=== PATIENT | female | born 1950 | race Caucasian/White ===

== ENCOUNTER 2018-05-13 08:25 | Emergency (ER) | payer OTHER, MEDICARE ==
[~2018-05-13] VITALS: Wt 104.0 kg
[2018-05-13] MEDS ORDERED: ONDANSETRON 4 MG INJ IV STA (08:36)
[2018-05-13] MEDS ORDERED: LIDOCAINE/MYLANTA 40 ML BTL PO ONE (09:00)
[2018-05-13] MEDS ORDERED: morphine 4 MG/ML VIAL IV STA (09:45)
[2018-05-13] MEDS ORDERED: CEPHALEXIN 500 MG CAP PO ONE (10:00)
[2018-05-13] MEDS ORDERED: ONDA4TAB14 PO (10:30)
[2018-05-13] MEDS ORDERED: NALO4SPR NS (10:30)
[2018-05-13] MEDS ORDERED: HYDR-4011 PO (10:30)
--- NOTE | 2018-05-13 10:31 | ERD ---
ER Documentation Chief Complaint Chief Complaint ABD PAIN WITH N/V SINCE LAST NIGHT AFTER [place] [employer] HPI Patient is a 67-year-old female with no medical problems who presents with abdominal pain. She has sharp and constant in the epigastric area. It has been constant and sharp in nature. The patient has nausea and vomiting but no blood. The patient's primary doctor is Dr. Medrano. The symptoms started after eating [place]. ROS All systems reviewed and are negative except as per history of present illness. Medications Home Meds Active Scripts Naloxone HCl nasal spray (Narcan 4 mg/0.1 mL nasal) 4 Mg [place], 4 MG NS .Q2-3MIN for OPIOID OVERDOSE, #2 SPRAY 0 Refills [place] 0.1 mL into one nostril. Repeat with second device into other nostril after 2-3 minutes if no or minimal response Prov:SABAS GRANADOS MD 05/13/18 Ondansetron (Ondansetron Odt) 4 Mg Tab.rapdis, 4 MG PO Q6H PRN for NAUSEA AND/OR VOMITING, #10 TAB Prov:SABAS GRANADOS MD 05/13/18 Hydrocodone/Acetaminophen ([place] 5-325 Tablet) 1 Each Tablet, 1 TAB PO Q6H PRN for PAIN, #7 TAB Prov:SABAS GRANADOS MD 05/13/18 Allergies Allergies: Coded Allergies: No Known Allergy (Unverified , 05/13/18) PMhx/Soc History of Surgery: No Anesthesia Reaction: No Hx Neurological Disorder: No Hx Respiratory Disorders: No Hx Cardiac Disorders: Yes (HIGH CHOLESTEROL) Hx Psychiatric Problems: No Hx Miscellaneous Medical Probl: No Hx Alcohol Use: No Hx Substance Use: No Hx Tobacco Use: No Smoking Status: Never smoker FmHx Family History: diabetes Physical Exam Vitals Vital Signs Date Temp Pulse Resp B/P (MAP) Pulse Ox O2 O2 Flow FiO2 Time Delivery Rate 05/13/18 98.5 65 17 127/80 99 Room Air 11:05 (96) 05/13/18 98.5 86 18 169/87 99 08:27 (114) Physical Exam Const: No acute distress Head: Atraumatic Eyes: Normal Conjunctiva ENT: Normal External Ears, Nose and Mouth. Neck: Full range of motion. No meningismus. Resp: Clear to auscultation bilaterally Cardio: Regular rate and rhythm, no murmurs Abd: Soft, epigastric tenderness to palpation without rebound or guarding Skin: No petechiae or rashes Back: No midline or flank tenderness Ext: No cyanosis, or edema Neur: Awake and alert Psych: Normal Mood and Affect Result Diagram: 05/13/18 0911 05/13/18 0911 Results 24 hrs Laboratory Tests Test 05/13/18 09:11 White Blood Count 12.8 10^3/ul Red Blood Count 4.81 10^6/ul Hemoglobin 13.0 g/dl Hematocrit 40.9 % Mean Corpuscular Volume 85.0 fl Mean Corpuscular Hemoglobin 27.0 pg Mean Corpuscular Hemoglobin Concent 31.8 g/dl Red Cell Distribution Width 13.0 % Platelet Count 248 10^3/UL Mean Platelet Volume 10.4 fl Immature Granulocytes % 0.500 % Neutrophils % 85.1 % Lymphocytes % 9.3 % Monocytes % 4.9 % Eosinophils % 0.0 % Basophils % 0.2 % Nucleated Red Blood Cells % 0.0 /100WBC Immature Granulocytes # 0.070 10^3/ul Neutrophils # 10.9 10^3/ul Lymphocytes # 1.2 10^3/ul Monocytes # 0.6 10^3/ul Eosinophils # 0.0 10^3/ul Basophils # 0.0 10^3/ul Nucleated Red Blood Cells # 0.0 10^3/ul Urine Color YELLOW Urine Clarity SLIGHTLY CLOUDY Urine pH 7.0 Urine Specific [place] 1.023 Urine Ketones 1+ mg/dL Urine Nitrite NEGATIVE mg/dL Urine Bilirubin NEGATIVE mg/dL Urine Urobilinogen NEGATIVE mg/dL Urine Leukocyte Esterase TRACE [place]/ul Urine Microscopic RBC 29 /HPF Urine Microscopic WBC 36 /HPF Urine Squamous Epithelial Cells FEW /HPF Urine Bacteria MODERATE /HPF Urine Mucus FEW /HPF Urine Hemoglobin 1+ mg/dL Urine Glucose NEGATIVE mg/dL Urine Total Protein 3+ mg/dl Sodium Level 141 mmol/L Potassium Level 3.7 mmol/L Chloride Level 97 mmol/L Carbon Dioxide Level 27 mmol/L Anion Gap 17 Blood Urea Nitrogen 12 mg/dl Creatinine 0.60 mg/dl Est Glomerular Filtrat Rate mL/min > 60 mL/min Glucose Level 147 mg/dl Calcium Level 9.6 mg/dl Total Bilirubin 0.4 mg/dl Direct Bilirubin 0.00 mg/dl Indirect Bilirubin 0.4 mg/dl Aspartate Amino Transf (AST/SGOT) 25 IU/L Alanine Aminotransferase (ALT/SGPT) 20 IU/L Alkaline Phosphatase 85 IU/L Troponin I < 0.012 ng/ml Total Protein 8.5 g/dl Albumin 4.5 g/dl Globulin 4.00 g/dl Albumin/Globulin Ratio 1.12 Lipase 28 U/L Current Medications Medications Dose Sig/Dat Start Time Status Last (Trade) Ordered Route PRN Stop Time Admin Dose Reason Admin Ondansetron 4 mg ONCE STAT 05/13/18 DC 05/13/18 HCl (Zofran IV 08:36 09:15 Inj) 05/13/18 08:37 40 ml ONCE ONCE 05/13/18 DC 05/13/18 Miscellaneous PO 09:00 09:16 Medication 05/13/18 09:01 (Gi Cocktail (2)) Morphine 4 mg ONCE STAT 05/13/18 DC 05/13/18 Sulfate IV 09:45 09:48 (morphine) 05/13/18 09:46 Cephalexin 500 mg ONCE ONCE 05/13/18 DC 05/13/18 (Keflex) PO 10:00 10:47 05/13/18 10:01 Procedures/MDM EKG read by me: Rate/Rhythm: Regular rate and rhythm at a rate of 73 Intervals: Normal Impression: No evidence of ischemia or arrhythmia Ultrasound of the gallbladder read by radiology. Patient is a 67-year-old female who presents with abdominal pain. She was found to have biliary colic. I doubt cholecystitis or pancreatitis at this time. I doubt appendicitis or bowel obstruction. She has cystitis and I would treat her with Keflex. I will treat with [place] and Zofran for symptom medic relief and she will be given a prescription for Narcan. She will need to follow-up with her primary doctor and with Dr. Osman from general surgery within 24-48 hours. She would likely benefit from outpatient cholecystectomy. She can return for any worsening symptoms. Departure Diagnosis: Primary Impression: Biliary colic Additional Impressions: Abdominal pain Abdominal location: epigastric Qualified Codes: R10.13 - Epigastric pain Cystitis Condition: Fair Patient Instructions: Cystitis, Biliary Colic With Gallstone (Confirmed) Referrals: AYAZ MEDRANO ANDREW I MD Additional Instructions: Llame al doctor ANGUS y jarrett estefani RADHA PARA DENTRO DE 1-2 CARO.Dgale a la secretaria que nosotros le instruimos hacer esta radha.Avise o llame si callejas condicin se empeora antes de la radha. Regresa aqui si peor o no mejor. SABAS GRANADOS MD May 13, 2018 10:31
[2018-05-13 11:05] VITALS: BP 127/80; PULSE 65; RESP 17
== END 2018-05-13 11:28 | disposition home or self-care (01) ==
LOC: E/R 08:25
DX: K80.20 Calculus of gallbladder without cholecystitis without obstruction (principal); N30.90 Cystitis, unspecified without hematuria
CPT/HCPCS: 36415; 76705; 80053; 81001; 83690; 84484; 85025; 93005; 96374; 96375; 99285; J2270; J2405